=== PATIENT | male | born 1945 ===

== ENCOUNTER 2018-03-06 18:22 | Inpatient (IN) | payer OTHER ==
[~2018-03-06] VITALS: Ht 177.8 cm; Wt 114.3 kg
[2018-03-06] MEDS ORDERED: METFORMIN HCL500 MG (18:51)
[2018-03-06] MEDS ORDERED: COZAAR100 MG (18:51)
[2018-03-06] MEDS ORDERED: METOPROLOL SUCC50 MG (18:52)
[2018-03-06] MEDS ORDERED: ALLOPURINOL300 MG (18:52)
[2018-03-06] MEDS ORDERED: MILLIPRED5 MG (18:53)
[2018-03-06] MEDS ORDERED: NABUMETONE750 MG (18:53)
[2018-03-11] MEDS ORDERED: LEVAQUIN750 MG PO (12:37)
[2018-03-11] MEDS ORDERED: LOTRISONE CREAM45 GM TOP (12:38)
== END 2018-03-11 13:50 | disposition home or self-care (01) | DRG 872 ==
LOC: ER 18:22 → SEC-K 03-07 10:54 → MEDJ 03-07 22:00 → SEC-K 03-07 22:24 → SURH 03-09 18:50
PROC: B54DZZZ Ultrasonography of Bilateral Lower Extremity Veins (ICD-10-PCS; principal; 2018-03-10)
DX: A41.9 Sepsis, unspecified organism (principal); L03.115 Cellulitis of right lower limb; E27.3 Drug-induced adrenocortical insufficiency; I10 Essential (primary) hypertension; E09.65 Drug or chemical induced diabetes mellitus with hyperglycemia; T38.0X5A Adverse effect of glucocorticoids and synthetic analogues, initial encounter; M06.89 Other specified rheumatoid arthritis, multiple sites; I87.2 Venous insufficiency (chronic) (peripheral)